=== PATIENT | female | born 1980 ===

== ENCOUNTER → 2017-09-17 | Outpatient (CLI) | payer OTHER ==
--- NOTE | 2017-09-17 10:19 | DIAGNOSTIC IMAGING REPORT ---
L ANKLE MIN 3 VIEWS ROUTINE HISTORY: 37 years-old Female ANKLE PAIN acute left-sided ankle pain. No reported trauma. COMPARISON: None available TECHNIQUE: 3 views of the left ankle FINDINGS: No acute fracture, subluxation or significant degenerative changes. No osteochondral defect. There is mild circumferential soft tissue swelling about the ankle, greatest anterolaterally with small ankle joint effusion. 8 mm bone island is noted involving the cephalad portion of the calcaneal body. No opaque foreign body. IMPRESSION: 1. No acute fracture or subluxation. 2. Mild soft tissue swelling with small joint effusion. The above report was generated using voice recognition software. It may contain grammatical, syntax or spelling errors. Electronically signed by: Jim Velarde M.D. 09/17/2017 10:18 AM Dictated Date/Time: 09/17/2017 10:16 AM
== END | disposition home or self-care (01) ==
LOC: C.RAD1850 10:07
PROVIDERS: ATTEND Nurse Practitioner
DX: M25.572 Pain in left ankle and joints of left foot (principal)